=== PATIENT | female | born 1935 | race Caucasian/White ===

== ENCOUNTER → 2016-08-20 | Outpatient (REF) ==
[~2016-08-20] MED LIST: ARICEPT10 MG; CALCI-MIX500 M1; CELEXA10 MG; COZAAR100 MG; DEPAKOTE500 MG; DETROL LA4; DIAST10 REC; DUO-KAPS1 CAP; MIRALAX PA17 GM/Dose; NAMENDA 10MG TA10 MG; NORVASC 5MG5 MG/TAB; SYNTHROID0.1 MG/TAB; TYLENOL 325MG325 MG; ULTRAM 50MG TAB50 MG; VITAMIN D1000 IU; ZOCOR 20MG20 MG
== END ==
LOC: ZLAB.WCH 09:32
DX: Z01.89 Encounter for other specified special examinations (principal)

== ENCOUNTER → 2016-10-14 | Outpatient (REF) | LOC: ZLAB.WCH 14:52 | DX: Z01.89 Encounter for other specified special examinations (principal) ==

== ENCOUNTER → 2017-02-04 | Outpatient (REF) | LOC: ZLAB.WCH 08:47 | DX: Z01.89 Encounter for other specified special examinations (principal) ==

== ENCOUNTER → 2017-10-14 | Outpatient (REF) | LOC: ZLAB.WCH 18:15 | DX: Z01.89 Encounter for other specified special examinations (principal) ==